=== PATIENT | female | born 1960 | race Caucasian/White ===

== ENCOUNTER 2018-01-17 08:37 | Day surgery (SDC) | payer BC ==
[2018-01-17] MEDS ORDERED: Liquid Adhesive TOP ONE (10:53)
[2018-01-17] MEDS ORDERED: Lidocaine 1% Inj (20ml) ONE (10:54)
[2018-01-17] MEDS ORDERED: Bupivacaine 0.5% 50 ML IJ ONE (10:54)
[2018-01-17] MEDS ORDERED: Propofol 10 mg/ml Inj (20 ML) ONE (11:05)
[2018-01-17] MEDS ORDERED: Bupivacaine 0.5% Inj(30mL) IJ ONE (11:30)
[2018-01-17] MEDS ORDERED: HYDROmorphone 0.5 mg/0.5 ml ISec IVP PRN (12:54)
[2018-01-17] MEDS ORDERED: TraMADol/Apap 37.5/325 mg Tab PO PRN (12:57)
--- NOTE | 2018-01-17 12:57 | PCM.SURG1 ---
Surgeon's Initial Post Op Note - Surgeon's Notes Surgeon: Dr. Proctor Cement Conveyor Operator: Dr. Whitaker PGY4 Dr. Ogden PGY3 Type of Anesthesia: General LMA, Local Pre-Operative Diagnosis: breast mass, left and left axillary mass Operative Findings: L breast mass and L axillary palpable lymph nodes Post-Operative Diagnosis: L breast mass and L palpable axillary lymph nodes Operation Performed: Left breast lumpectomy w/ L axillary lymph node dissection Specimen/Specimens Removed: L breast mass and L axillary lymph nodes Estimated Blood Loss: EBL {In ML}: 30 Blood Products Given: N/A Drains Used: Sump Drain (red rubber catheter in left breast and left axilla) Post-Op Condition: Good Date of Surgery/Procedure: 01/17/18 Time of Surgery/Procedure: 12:56
[2018-01-17] MEDS ORDERED: Lactated Ringer's 1,000 ML IV SCH (13:00)
[2018-01-17] MEDS ORDERED: HYDROmorphone 0.5 mg/0.5 ml ISec ONE (13:01)
[2018-01-17 14:24] VITALS: BMI 26.7
[2018-01-17 14:26] VITALS: RESP 18; TEMP 97.5
[2018-01-17 18:14] VITALS: BP 120/59; PULSE 57; O2SAT 98
--- NOTE | 2018-01-19 22:56 | OP ---
PROCEDURE DATE: 01/17/2018 SURGEON: Shaquille Proctor MD DENTAL SALES REPRESENTATIVE: Dr. Whitaker, PGY-4 SECOND DENTAL SALES REPRESENTATIVE: Dr. Ogden, PGY-3 CHIEF ENVIRONMENTAL COMMITMENT OFFICER: Dr. Logan ANESTHESIA: General - LMA - bupivacaine 0.5 - 18 mL. PREOPERATIVE DIAGNOSIS: Left 9 o'clock position breast mass and a left axillary nodule. POSTOPERATIVE DIAGNOSIS: Left 9 o'clock position breast mass and a left axillary nodule. PATHOLOGY: Pending. FROZEN SECTION: Probable breast carcinoma. PERMANENT SECTION: Pending. PROCEDURE: 1. Partial left mastectomy (lumpectomy). 2. Axillary dissection. OPERATIVE INDICATION: The patient is a 57-year-old female with a palpable 1.5-2 cm mass in her left 9 o'clock position of her breast. The patient has undergone mammography which are BI-RADS 4 and suspicious for possible malignancy, but the patient has declined biopsy and is insisted on going straight to having a tumor removed. Extensive discussion was held with the patient and her explaining that removing the tumor might become diagnosed as a malignancy with encounter further decision whether to radiate the breast and do a sentinel node procedure or do a simple mastectomy with the axillary dissection. The joint decision the family all made with the patient signing the consent was to remove the tumor in the breast (lumpectomy) and do the axillary dissection on the palpable lesions that were there at this time. Risks, benefits and alternatives with their anticipated outcomes were discussed with the patient. She has signed the informed consent. OPERATIVE NOTE: The patient is brought to the operating room, identified by her wristband and undergoes time-out procedure. Following the induction of general anesthesia and the insertion of an endotracheal tube, the patient has sequential compression devices placed on her lower extremities and was loaded with parenteral antibiotic. She is now aseptically draped and prepped with Hibiclens. Circumareolar incision was made on the left breast from 12 o'clock to 7 o'clock after infiltrating the skin itself. Sharp dissection was carried on through the skin to the subcutaneous tissues over the breast and the tumor was palpated and grasped with a Geo clamp. Using the surgical assistance judiciously, the tumor is exposed and electrically coagulated and removed from the surrounding breast tissue in its entirety. Once this was performed, it was submitted to Pathology for frozen section exam and attention was drawn to hemostatic control with electrocoagulating current cautery. The area was now lavaged with multi lavages of saline, aspirated, confirmed and packed with laparotomy tape. The left axilla was now palpated on the area previously marked like the breast was infiltrated transversely across the axilla and once good anesthetic take is noted, the incision was made through the skin down to the deeper portions of the axilla and the axillary mass was dissected free with blunt technique and brought out and hemostasis was contained with cautery or clamp and 2-0 chromic catgut ligature. The lesions in the axilla are grossly suspicious for malignancy are firm and hard. The wound was now examined at this point and no further axillary lymphatic tissue was palpable and the wound was considered dry and both wounds were now closed with 3-0 Polysorb subcutaneous approximation and the skin closed with AutoSuture clips. A 10-[place] drain was inserted into each incision into the depths of the wound to bring out any additional fluids that may accumulate and these were stapled to the dressing and will be removed by the patient on the first postoperative day at home. Dry dressings were placed over this, brassiere type binder was applied. The patient was awakened, extubated and transported to the recovery room in a satisfactory condition. Sponge, instrument and suture count were verified as correct at the end of the procedure. Estimated blood loss during this procedure was less than 50 mL of blood. This dictation will be electronically signed without being read. The surgical assistants were present throughout the procedure from beginning to end and were extremely helpful in the dissection and in the performance of this particular operation. Shaquille Proctor MD
== END 2018-01-17 18:15 | disposition home or self-care (01) ==
LOC: SDS 08:37
PROVIDERS: ATTEND Surgery
DX: C50.912 Malignant neoplasm of unspecified site of left female breast (principal); C77.3 Secondary and unspecified malignant neoplasm of axilla and upper limb lymph nodes
CPT/HCPCS: 19302; 36415; 86850; 86900; 88307; 88331; J0131; J0690; J1170; J2001; J2405; J2704; J3010; J7120 ×2